=== PATIENT | male | born 1980 | race Hispanic/Latino ===

== ENCOUNTER 2016-09-27 16:43 | Emergency (ER) | payer OTHER ==
[~2016-09-27] VITALS: Ht 167.6 cm; Wt 97.3 kg
[2016-09-27 16:46] VITALS: BP 165/108; PULSE 94; RESP 20; O2SAT 96
--- NOTE | 2016-09-27 17:29 | DRSVH ---
PROCEDURE: X-RAY RIGHT FOREARM, TWO VIEWS ([id number]) INDICATIONS: injury at work TECHNIQUE: 2 views of the forearm were acquired. COMPARISON: None. FINDINGS: Bones: Subtle cortical lucency at the radial styloid although this is a technically to indeterminate finding. This could represent a subtle nondisplaced fracture versus nutrient foramen. Elsewhere, no fractures or dislocations. No suspicious bony lesions. Soft tissues: No suspicious soft tissue calcifications or masses. IMPRESSION: Cortical lucency of the radial styloid, indeterminate. Please correlate clinically to point tendernes s and if suspect fracture in this location, follow up radiographs in 10 days could be performed to as sess for healing sclerosis Elsewhere, no fracture. Dictated by: Huber Solis M.D. on 09/27/2016 at 17:26 Approved by: Huber Solis M.D. on 09/27/2016 at 17:28
--- NOTE | 2016-09-27 17:57 | ED.REPORT ---
HPI-Extremity Problem Upper Date of Service Sep 27, 2016 ED Provider: Niraj Condon MD Pt is a healthy 35 y/o male presenting to the ED due to right forearm injury which occurred today. The patient was trying to catch something that was falling from a ladder and on the way down got his right arm caught between the object and a fence. He denies any other sites of injury or other complaints. Having pain in his right forearm and has noticed that it is slightly swollen. No numbness, tingling or weakness. He did not strike his head. He has no other complaints today. Nursing Notes Stated Complaint: RIGHT ARM PAIN/ WORK RELATED Chief Complaint: Extremity Trauma Nursing Notes Reviewed: Yes Allergies: Coded Allergies: No Known Allergies (Unverified , 09/27/16) General Time Seen by MD: 17:54 Chief Complaint Arm injury right Hx Obtained From: Patient Arrived By: Walk-in Onset Occurred: 1 - 4 hours ago Symptom Duration: Since onset Location: : Forearm right Quality: Painful Severity: Current: Mild Severity: Maximum: Moderate Similar Sx Previous: No Past Medical History Past Medical History None reported Past Surgical History None reported Smoking History Unknown if Ever Smoker Ambulatory Status Independent Review of Systems Constitutional: Denies: Chills, Fever Musculoskeletal: Reports: Extremity pain Neurologic: Denies: Numbness, Weakness Complete sys rev & neg: except as marked. Cardiovascular: Denies: Chest pain GI: Denies: Abdominal pain Physical Exam Initial Vital Signs Vital Signs (First) Date Time Temp Pulse Resp B/P Pulse Ox O2 Delivery O2 Flow Rate FiO2 09/27/16 16:46 94 20 165/108 96 Room Air Initial VS: Reviewed, Vital signs abnormal Head / Eyes: Atraumatic, Normocephalic, PERRL ENT: Mucous membranes moist, Conjunctiva normal, No scleral icterus Neck: Supple, Full range of motion Respiratory: Breath sounds normal, Clear to auscultation, No respiratory distress Cardiovascular: Regular rate & rhythm, Heart sounds normal, Intact distal pulses Abdomen / GI: Soft, Non-tender Skin: Warm, Dry, No cyanosis Neurologic: Alert, Oriented, Nonfocal Psychiatric: Mood/affect normal, Behavior normal, Normal thought content General/Constitutional: Awake, Alert, No acute distress, Well appearing, Cooperative, Not toxic appearing Upper Extremity / MS: No deformity, Neurologic intact, Vascular intact, No compartment syndrome Ecchymosis and tenderness about right mid-forearm over ulnar aspect Superficial abrasions Full flexion and extension of the right elbow, wrist, hand, and fingers No tenderness about distal radial region Interpretation & Diagnostics X-Ray Interpretation Xray Interpretation: IMPRESSION: Cortical lucency of the radial styloid, indeterminate. Please correlate clinically to point tenderness and if suspect fracture in this location, follow up radiographs in 10 days could be performed to assess for healing sclerosis Elsewhere, no fracture. Dictated by: Huber Solis M.D. on 09/27/2016 at 17:26 Approved by: Huber Solis M.D. on 09/27/2016 at 17:28 X-Ray Ordered: Radius ulna right Interpretation / Wet Read by: Interpret - Radiologist Re-Eval/Medical Decision Med Decision/Clinical Course Pt is a healthy 35 y/o male presenting to the ED due to right forearm injury which occurred today. The patient was trying to catch something that was falling from a ladder and on the way down got his right arm caught between the object and a fence. He denies any other sites of injury or other complaints. Having pain in his right forearm and has noticed that it is slightly swollen. No numbness, tingling or weakness. He did not strike his head. He has no other complaints today. Here in the emergency department the patient is afebrile, hemodynamically stable and in no apparent distress. Examination as above. X-ray right forearm: IMPRESSION: Cortical lucency of the radial styloid, indeterminate. Please correlate clinically to point tenderness and if suspect fracture in this location, follow up radiographs in 10 days could be performed to assess for healing sclerosis Elsewhere, no fracture. Presentation unconvincing for acute fracture. He has some very superficial abrasions and an underlying hematoma. He is neurovascularly intact in the affected extremity. There is no evidence of injury to the elbow, wrist or hand. He has full flexion and extension of his fingers. There is no laceration requiring sutures. There is no evidence of compartment syndrome. While there is possible lucency of the radial styloid there is no focal tenderness about this region. He has been placed in a sugar tong splint and sling for comfort. He will follow up with his regular physician in one week for repeat x-rays. He will apply ice packs, elevate the arm and take ibuprofen for pain. Prior to discharge follow-up and return precautions were reviewed in detail with the patient who verbalized understanding and agreement with the plan. The patient was discharged in stable condition. Re-Evaluation/Progress : Time of Eval: 18:17 Re-Evaluation/Progress Note: F/U instructions and RTER warnings given. All questions addressed. Counseled Regarding: Diagnosis, Need for follow-up, When/why to return to ED Discharge & Departure Impression: Primary Impression: Right forearm injury Encounter type: initial encounter Qualified Code: S59.911A - Unspecified injury of right forearm, initial encounter Additional Impressions: Traumatic hematoma of forearm Encounter type: initial encounter Laterality: right Qualified Code: S50.11XA - Contusion of right forearm, initial encounter Right forearm pain Disposition: Home Discharge Condition All VS Reviewed: Yes Condition: Improved Patient Instructions: Splint Care (ED) Additional Instructions: Thank you for seeking care at the emergency room. There is no obvious fracture on the x-ray. Our primary goal today in the ED was to evaluate you for any life-threatening conditions. Your evaluation was reassuring. Take Ibuprofen 600 mg every 6 hours as needed for pain. You should follow-up with your primary doctor in the next week. Keep the splint on until you are seen by a doctor. You should return to the ED immediately if you develop fevers, uncontrollable pain, or any other concerning signs or symptoms. Thank you for letting us partake in your care today. Referrals: [facility] [place] Scribe Attestation Portions of this note were transcribed by Wilberto Yang. I, Dr. Condon personally performed the history, physical exam and medical decision-making; I reviewed and confirmed the accuracy of the information in the transcribed note. Signed by Samuel Fernandez, 09/27/16 - 1804 Niraj Condon MD Sep 27, 2016 17:57 WILBERTO YANG Sep 27, 2016 18:04
[2016-09-27 19:07] VITALS: BP 136/85; PULSE 86; RESP 20; O2SAT 97
== END 2016-09-27 19:09 | disposition home or self-care (01) ==
LOC: MERGE 16:43 → SED 16:43
DX: S50.11XA Contusion of right forearm, initial encounter (principal); W23.0XXA Caught, crushed, jammed, or pinched between moving objects, initial encounter; Y93.89 Activity, other specified; Y92.69 Other specified industrial and construction area as the place of occurrence of the external cause; Y99.0 Civilian activity done for income or pay

== ENCOUNTER 2016-10-25 18:50 | Emergency (ER) | payer OTHER ==
[~2016-10-25] VITALS: Ht 165.1 cm; Wt 97.3 kg
[2016-10-25 18:55] VITALS: BP 154/86; PULSE 98; RESP 18; O2SAT 98
--- NOTE | 2016-10-25 21:00 | ED.REPORT ---
HPI-Extremity Problem Upper Date of Service Oct 25, 2016 ED Provider: William Hong DO Patient is a 35 year old male who presents to the ED after getting his newly placed cast wet. The patient was told to come to the ED to have the cast removed and be placed in a splint. Patient has no complaints at this time. Nursing Notes Stated Complaint: RIGHT WRIST/ARM CAST TOO LOOSE Chief Complaint: Wound Recheck/Suture Removal Nursing Notes Reviewed: Yes Allergies: Coded Allergies: No Known Allergies (Unverified , 09/28/16) General Time Seen by MD: 20:59 Chief Complaint Arm injury right Hx Obtained From: Patient Arrived By: Walk-in Onset Occurred: 1 - 4 hours ago Symptom Duration: Since onset Location: : Arm right Recent Healthcare: Recent doctor visit Similar Sx Previous: No Past Medical History Past Medical History none reported Smoking History Unknown if Ever Smoker Ambulatory Status Cane Review of Systems Review of Systems Note: +wet cast Constitutional: Denies: Chills, Fever Musculoskeletal: Denies: Extremity pain, Extremity swelling Skin: Denies Itching, Denies Rash Neurologic: Denies: Numbness, Weakness Complete sys rev & neg: except as marked. Physical Exam Initial Vital Signs Vital Signs (First) Date Time Temp Pulse Resp B/P Pulse Ox O2 Delivery O2 Flow Rate FiO2 10/25/16 18:55 36.6 98 18 154/86 98 Room Air Initial VS: Reviewed General/Constitutional: Awake, Alert, No acute distress Respiratory / Chest: Atraumatic, Breath sounds NL, Breath sounds = bilat, No respiratory distress Cardiovascular: Heart rate NL, Regular rhythm, Heart sounds NL Upper Extremity / MS: Neurologic intact, Vascular intact end of cast on right arm is wet and sloppy Wrist / Hand: Neurologic intact, Vascular intact Skin: Atraumatic, Color NL, No rash, Warm, Dry Neurologic: Oriented X3, Speech NL, No motor deficits, No sensory deficits Head / Eyes: Atraumatic, Normocephalic, PERRL, EOMI Psychiatric: Affect NL, Mood NL Procedures Splint Application - Fx Mgt Time: 21:28 Procedure Performed by: ED physician, Patient Appointment Coordinator Precise Anatomic Location: right arm Type of Immobilization: Sugar tong, Volar short arm Definitive Fracture Care: Pain control, Splint Post-Procedure / Complications: Cap refill normal, Post splint vascular nl, Post splint neuro nl, Condition improved, Tolerated procedure well, Patient stable Re-Eval/Medical Decision Re-Evaluation/Progress : Time of Eval: 21:31 Re-Evaluation/Progress Note: Discussed plan for follow up and discharge. Patient understands and agrees to plan. All questions were addressed. Counseled Regarding: Diagnosis, Need for follow-up, When/why to return to ED Discharge & Departure Impression: Primary Impression: Cast removal Disposition: Home Discharge Condition All VS Reviewed: Yes Condition: Stable Patient Instructions: Splint Care (ED) Additional Instructions: Keep the splint on until you follow up with your orthopedic doctor. Call tomorrow to schedule an appointment to get it recasted. You can take Tylenol as needed for pain. Return to the emergency department if you develop any new or concerning symptoms. Referrals: Eduard Mayfield MD Attestation Portions of this note were transcribed by Odalis Bermudez. I, Dr. Hong personally performed the history, physical exam and medical decision-making; I reviewed and confirmed the accuracy of the information in the transcribed note. Signed by: Samuel Lewis, 10/25/16 copies to: Eduard Mayfield MD, Todd P DO Oct 25, 2016 21:00 Gisela Bermudez Oct 25, 2016 21:22
== END 2016-10-25 21:46 | disposition home or self-care (01) ==
LOC: SED 18:50
DX: Z47.89 Encounter for other orthopedic aftercare (principal)